=== PATIENT | male | born 1945 | race Caucasian/White ===

== ENCOUNTER 2020-05-02 08:07 | Outpatient (RCR) | payer MEDICARE, BC ==
[~2020-05-02] VITALS: Ht 177 cm; Wt 106.8 kg
[~2020-05-02 08:07] MED LIST: ASPI-586 PO; GEMF600T8 PO; LISI10TA2 PO; METF500T PO; PREG50CA65 PO
== END 2020-05-02 14:05 | disposition home or self-care (01) ==
LOC: PREOP 08:07
PROVIDERS: ATTEND Radiology Radiation Oncology
DX: Z01.818 Encounter for other preprocedural examination (principal); Z11.59 Encounter for screening for other viral diseases; C61 Malignant neoplasm of prostate
CPT/HCPCS: 87635

== ENCOUNTER 2020-05-07 11:24 | Day surgery (SDC) | payer MEDICARE, BC ==
[~2020-05-07] VITALS: Ht 177 cm; Wt 106.8 kg
[2020-05-07] VITALS (8 sets, daily range): BP systolic 104–132; BP diastolic 67–83
[2020-05-07] MEDS ORDERED: LEVOFLOXACIN 250 MG/50 ML IVPB 50 ML IV ONE (11:45)
--- NOTE | 2020-05-07 11:56 | Progress Note-Pre Operative ---
Pre-Operative Progress Note H&P Reviewed The H&P was reviewed, patient examined and no changes noted. Date Seen by Provider: May 07, 2020 Time Seen by Provider: 11:55 Date H&P Reviewed: May 07, 2020 Time H&P Reviewed: 11:55 Pre-Operative Diagnosis: Prostate cancer cT1c, PSA 8.35, [place] 7 (3+4) JONATHON SINGH MD May 07, 2020 11:56
[2020-05-07] MEDS ORDERED: CIPR-226 PO (12:01)
[2020-05-07] MEDS ORDERED: ACET1TAB43 PO (12:01)
--- NOTE | 2020-05-07 12:06 | Discharge Inst-Simple/Standard ---
Discharge Inst-Standard Reconcile Patient Problems Problems Reviewed?: Yes Discharge Medications New, Converted or Re-Newed RX: RX Given to Pt/Family Patient Instructions/Follow Up Plan of Care/Instructions/FU: 1) One month post implant scan at [facility] 06/04/20 at 11:00 am. 2) One month post implant f/u with Dr. Tirado 06/09/20 at 2:15 pm. Activity as Tolerated: Yes Discharge Diet: No Restrictions Other Inst to Patient Patient wishes to have catheter removed at Dr. Tirado's office. Date to be determined by Dr. Tirado. JONATHON SINGH MD May 07, 2020 12:05
--- OUTSIDE RECORDS SUMMARY | 2020-05-07 12:16 | XMS REPORT | Continuity of Care Document ---
Author Organization Unknown Address Unknown Phone Unavailable Allergies Active Description Code Type Severity Reaction Onset Reported/Identified Relationship to Patient Clinical Status Yes No Known Drug Allergies [id number] Drug Allergy Unknown N/A 04/29/2020 Medications There is no data. Problems Date Dx Coded Attending Type Code Diagnosis Diagnosed By 10/27/1404 JONATHON SINGH MD, Ot C61 MALIGNANT NEOPLASM OF PROSTATE 10/27/1404 JONATHON SINGH MD Ot Z01.8 18 ENCOUNTER FOR OTHER PREPROCEDURAL EXAMIN 10/27/1404 JONATHON SINGH MD, Ot Z11.5 9 ENCOUNTER FOR SCREENING FOR OTHER VIRAL 04/28/2020 JONATHON SINGH MD, Ot C61 MALIGNANT NEOPLASM OF PROSTATE 04/28/2020 JONATHON SINGH MD Ot E11.9 TYPE 2 DIABETES MELLITUS WITHOUT COMPLIC 04/28/2020 JONATHON SINGH MD Ot I10 ESSENTIAL (PRIMARY) HYPERTENSION 04/28/2020 JONATHON SINGH MD Ot Z79.8 4 COMMERCIAL LOAN CLOSER (CURRENT) USE OF ORAL HYPOGLYC 04/28/2020 JONATHON SINGH MD Ot Z79.8 99 OTHER FDC (CURRENT) DRUG THERAPY 04/28/2020 JONATHON SINGH MD Ot Z85.8 28 PERSONAL HISTORY OF OTHER MALIGNANT NEOP 04/28/2020 JONATHON SINGH MD Ot 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 04/29/2020 JONATHON SINGH MD, Ot C61 MALIGNANT NEOPLASM OF PROSTATE 04/29/2020 JONATHON SINGH MD Ot E11.9 TYPE 2 DIABETES MELLITUS WITHOUT COMPLIC 04/29/2020 JONATHON SINGH MD Ot I10 ESSENTIAL (PRIMARY) HYPERTENSION 04/29/2020 JONATHON SINGH MD Ot Z79.8 4 COMMERCIAL LOAN CLOSER (CURRENT) USE OF ORAL HYPOGLYC 04/29/2020 JONATHON SINGH MD Ot Z79.8 99 OTHER COMMERCIAL LOAN CLOSER (CURRENT) DRUG THERAPY 04/29/2020 JONATHON SINGH MD Ot Z85.8 28 PERSONAL HISTORY OF OTHER MALIGNANT NEOP 04/29/2020 JONATHON SINGH MD Ot 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 05/02/2020 JONATHON SINGH MD Ot C61 MALIGNANT NEOPLASM OF PROSTATE 05/02/2020 JONATHON SINGH MD Ot Z01.8 18 ENCOUNTER FOR OTHER PREPROCEDURAL EXAMIN 05/02/2020 JONATHON SINGH MD Ot Z11.5 9 ENCOUNTER FOR SCREENING FOR OTHER VIRAL 05/06/2020 JONATHON SINGH MD Ot C61 MALIGNANT NEOPLASM OF PROSTATE 05/06/2020 JONATHON SINGH MD Ot E11.9 TYPE 2 DIABETES MELLITUS WITHOUT COMPLIC 05/06/2020 JONATHON SINGH MD Ot I10 ESSENTIAL (PRIMARY) HYPERTENSION 05/06/2020 JONATHON SINGH MD Ot Z79.8 4 COMMERCIAL LOAN CLOSER (CURRENT) USE OF ORAL HYPOGLYC 05/06/2020 JONATHON SINGH MD Ot Z79.8 99 OTHER COMMERCIAL LOAN CLOSER (CURRENT) DRUG THERAPY 05/06/2020 JONATHON SINGH MD Ot Z85.8 28 PERSONAL HISTORY OF OTHER MALIGNANT NEOP 05/06/2020 JONATHON ISNGH MD Ot 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 Results Test Result Range Coronavirus SARS-CoV-2 SO 2018 - 0 12:41 Coronavirus Ab [Units/volume] in Serum Negative Negative Capillary blood glucose measurement by g lucometer (mass/volume) - 05/07/20 11:59 Capillary blood glucose measurement by glucometer (mas s/volume) 104 mg/dL 70-110 Encounters ACCT No. Visit Date/Time Discharge Status Pt. Type Provider Facility Loc./Unit Complaint [id number] 05/02/2020 08:07:00 14:05:00 DIS Outpatient JONATHON SINGH MD [facility] PREOP PROSTATE CANCER [id number] 04/02/2020 09:41:00 23:59:59 CLS Outpatient JONATHON SINGH MD [facility] ONC [id number] 05/07/2020 11:24:[address] Outpatient JONATHON SINGH MD [facility] PROSTATE CANCER
[2020-05-07] MEDS ORDERED: LEVOFLOXACIN 500 MG/100 ML IV 100 ML IV ONE (12:30)
[2020-05-07] MEDS: LACTATED RINGERS 1,000 ML IV PRN ×2 (12:30→15:38)
[2020-05-07] MEDS ORDERED: SEVOFLURANE (ULTANE) 15 ML INHAL SOLN ONE (14:44)
[2020-05-07] MEDS ORDERED: ONDANSETRON 4 MG/2 ML (SDV) Z0FRAN ONE (14:44)
[2020-05-07] MEDS ORDERED: fentaNYL INJECTION 100 MCG/2 ML AMP ONE (14:44)
[2020-05-07] MEDS ORDERED: LIDOCAINE PF 2% 5 ML (XYLOCAINE) VIAL ONE (14:44)
[2020-05-07] MEDS ORDERED: proPOfol 200 MG/20 ML (DIPRIVAN) VIAL IV ONE (14:44)
[2020-05-07] MEDS ORDERED: MIDAZOLAM 2 MG/2 ML (VERSED) VIAL ONE (14:44)
[2020-05-07] MEDS ORDERED: IOPAMIDOL 61% 30 ML (ISOVUE 300) VIAL ONE (15:40)
[2020-05-07] MEDS ORDERED: BACITRACIN OINTMENT 28 GM TUBE ONE (15:46)
--- NOTE | 2020-05-07 16:12 | Diagnostic Imaging Report ---
INDICATION: Prostate cancer. TECHNIQUE/FINDINGS: Intraoperative fluoroscopy was obtained during radiation seed implant for brachytherapy per Dr. Pritchard. A single view demonstrates multiple radiation seed implants overlying the prostate. There is a Hill catheter in the bladder with some contrast in the bladder without distention. 11 seconds of fluoroscopy time was used in Surgery. IMPRESSION: Intraoperative fluoroscopy was used during seed placement for brachytherapy as above. Dictated by: Dictated on workstation # [id number]
[2020-05-07] MEDS ORDERED: ONDANSETRON 4 MG/2 ML (SDV) Z0FRAN IVP PRN (16:15)
[2020-05-07] MEDS ORDERED: morphine INJ 10 MG/ML 1ML (SYR OR VIAL) IVP ONE (16:15)
--- NOTE | 2020-05-07 16:15 | Progress Note-Post Operative ---
Post-Operative Progess Note Surgeon (s)/Laboratory Tech (s) Surgeon JONATHON SINGH MD Laboratory Tech: Cathleen SMALL MD Pre-Operative Diagnosis Prostate cancer cT1c, PSA 8.35, [place] 7 (3+4) Post-Operative Diagnosis Same as pre-op Procedure & Operative Findings Date of Procedure 05/07/20 Procedure Performed/Findings (1) 100% Cesium 131 permanent prostate seed implant (2) Injection of biodegradable hydrogel prostate-rectal spacer utilizing the SpaceOAR system (3) Cystogram Prostate volume 39.55 cc Anesthesia Type General Estimated Blood Loss Estimated blood loss (mL): Minimal Specimens/Packing Specimens Removed None Packing: None JONATHON SINGH MD May 07, 2020 16:15
--- NOTE | 2020-05-07 17:01 | Anesthesia-General Post-Op ---
General Patient Condition Mental Status/LOC: Same as Preop Cardiovascular: Satisfactory Nausea/Vomiting: Absent Respiratory: Satisfactory Pain: Controlled Complications: Absent Post Op Complications Complications None Follow Up Care/Instructions Patient Instructions None needed. Anesthesia/Patient Condition Patient Condition Patient is doing well, no complaints, stable vital signs, no apparent adverse anesthesia problems. No complications reported per nursing. WILBERT AGUILAR CRNA May 07, 2020 17:01
[2020-05-07] MEDS ORDERED: APAP 300 MG/CODEINE 30 MG (TYLENOL #3) TAB PO ONE ×2 (17:28→17:30)
== END 2020-05-07 17:40 | disposition home or self-care (01) ==
LOC: SDC 11:24
PROVIDERS: ATTEND Radiology Radiation Oncology
DX: C61 Malignant neoplasm of prostate (principal); R97.20 Elevated prostate specific antigen [PSA]; I10 Essential (primary) hypertension; E11.9 Type 2 diabetes mellitus without complications; M19.90 Unspecified osteoarthritis, unspecified site; Z79.84 Long term (current) use of oral hypoglycemic drugs; Z79.82 Long term (current) use of aspirin; Z79.899 Other long term (current) drug therapy; Z85.828 Personal history of other malignant neoplasm of skin; Z87.891 Personal history of nicotine dependence
CPT/HCPCS: 76000; 76965; 77290; 77318; 77332; 77370; 77470; 77778; 87081

== ENCOUNTER 2020-06-05 09:31 | Outpatient (RCR) | payer MEDICARE, BC ==
[~2020-06-05 09:31] MED LIST changes: +ACET1TAB43 PO; +CIPR-226 PO
== END 2020-07-01 | disposition home or self-care (01) ==
LOC: ONC 09:31
PROVIDERS: ATTEND Radiology Radiation Oncology
DX: Z51.0 Encounter for antineoplastic radiation therapy (principal); C61 Malignant neoplasm of prostate; E11.9 Type 2 diabetes mellitus without complications; I10 Essential (primary) hypertension; Z85.828 Personal history of other malignant neoplasm of skin; Z79.84 Long term (current) use of oral hypoglycemic drugs; Z79.899 Other long term (current) drug therapy; Z87.891 Personal history of nicotine dependence
CPT/HCPCS: 76873; G0463; 77290; 99205

== ENCOUNTER → 2020-07-10 | Outpatient (CLI) | payer MEDICARE, BC | LOC: EDSTATUS 07-02 09:07 → ONC 10:45 | PROVIDERS: ATTEND Radiology Radiation Oncology | DX: Z51.0 Encounter for antineoplastic radiation therapy (principal); C61 Malignant neoplasm of prostate | CPT/HCPCS: 77295 ==

== ENCOUNTER → 2020-12-04 | Outpatient (CLI) | payer MEDICARE, BC | LOC: ONC 13:50 | PROVIDERS: ATTEND Radiology Radiation Oncology | DX: C61 Malignant neoplasm of prostate (principal) | CPT/HCPCS: 84153; G0463; 99213 ==

== ENCOUNTER → 2021-06-04 | Outpatient (CLI) | payer MEDICARE, BC ==
[~2021-06-04] MED LIST changes: -GEMF600T8 PO; +GEMF600T88 PO; -LISI10TA2 PO; +LISI10TA25 PO
== END ==
LOC: ONC 08:44
PROVIDERS: ATTEND Radiology Radiation Oncology
DX: C61 Malignant neoplasm of prostate (principal)
CPT/HCPCS: 84153; G0463; 99213

== ENCOUNTER 2022-07-15 08:55 | Outpatient (RCR) | payer MEDICARE, BC ==
[~2022-07-15 08:55] MED LIST changes: +ACET-11 PO; -ACET1TAB43 PO
== END 2022-07-28 | disposition home or self-care (01) ==
LOC: ONC 08:55
PROVIDERS: ATTEND Radiology Radiation Oncology
DX: C61 Malignant neoplasm of prostate (principal); Z12.5 Encounter for screening for malignant neoplasm of prostate
CPT/HCPCS: G0103; G0463; 36415; 84153; 99213

== ENCOUNTER 2023-07-07 08:42 | Outpatient (RCR) | payer MEDICARE, BC | END 2023-07-28 | disposition home or self-care (01) | LOC: ONC 08:42 | PROVIDERS: ATTEND Radiology Radiation Oncology | DX: C61 Malignant neoplasm of prostate (principal) | CPT/HCPCS: 84153; G0463; 36415; 99213 ==